=== PATIENT | male | born 1970 | race Caucasian/White ===

== ENCOUNTER 2016-07-05 22:10 | Emergency (ER) | payer OTHER ==
[2016-07-05 22:19] VITALS: RESP 18
[2016-07-05 22:45] LABS: Basophils % (A) 0 %; CH 27.5; CHCM 33.7; Eosinophils # (A) 0.2 k/uL (0-0.7); Eosinophils % (A) 2 %; HCT 42.2 % (39.0-53.0); HDW 2.74; Luc # (Auto) 0.18; Luc % (Auto) 2; Lymphocytes # (A) 2.5 k/uL (1.0-4.8); Lymphocytes % (A) 26 %; MCH 27.2 pg (25.0-35.0); MCHC 33.2 g/dL (31.0-37.0); MCV 81.8 fL (80.0-100.0); Mean Platelet Volume 6.5; Monocytes # (A) 0.6 k/uL (0-1.0); Monocytes % (A) 6 %; Neutrophils # (A) 6.3 k/uL (1.3-7.7); Neutrophils % (A) 65 %; RBC 5.16 m/uL (4.30-5.90); RDW 13.6 % (11.5-15.5); WBC 9.8 k/uL (3.8-10.6); WBC (Perox) 10.09
[2016-07-05 22:58] LABS: ALT 27 U/L (21-72); AST 18 U/L (17-59); Alkaline Phosphatase 75 U/L (38-126); Anion Gap 15 mmol/L; Blood Urea Nitrogen 17 mg/dL (9-20); Calcium 9.2 mg/dL (8.4-10.2); Carbon Dioxide 25 mmol/L (22-30); Chloride 100 mmol/L (98-107); Glucose 138 mg/dL (74-99); Non-African American GFR(MDRD) >60 (>60 ml/min/1.73 sqM); Sodium 140 mmol/L (137-145); Total Bilirubin 0.9 mg/dL (0.2-1.3); Total Protein 7.9 g/dL (6.3-8.2); Uric Acid 7.1 mg/dL (3.5-8.5)
--- NOTE | 2016-07-05 23:31 | US ---
EXAM: US Duplex Right Lower Extremity Veins. CLINICAL HISTORY: Reason: Pain TECHNIQUE: Real-time ultrasound scan of the veins of the right lower extremity with color Doppler flow, spectral waveform analysis and compression. COMPARISON: None available FINDINGS: Deep veins: Unremarkable. No DVT in the common femoral, femoral or popliteal veins. Superficial veins: Unremarkable. No thrombus in the visualized greater saphenous vein. IMPRESSION: No evidence of deep venous thrombosis in the right lower extremity.
--- NOTE | 2016-07-05 23:34 | ED ---
General Adult HPI - General Chief complaint: Extremity Problem,Nontraumatic Stated complaint: Foot Pain/swelling Time Seen by Provider: 07/05/16 22:21 Source: patient, RN notes reviewed, old records reviewed Mode of arrival: wheelchair Limitations: no limitations - History of Present Illness Initial comments: Patient is a 46 year old male with chief complaint of 3 days of right foot swelling and warmth. Patient reports that he has no trauma over the area. Patient states that this has happened before, and his PCP usually puts him on steriods and antiinflammatories. Patient states he has no known history of gout. Patient given IM toradol and solumedrol. Patient states he has a PCP follow up tomorrow. Patient US is negative for DVT and lab work is negative for elevated uric acid or signs of infection. Return parameters discussed. I advised patient to follow up with ortho and PCP in regards for the further prescriptions as he is seeing them tomorrow. - Related Data Home Medications Medication Instructions Recorded Confirmed Hydrocodone/Acetaminophen [Vicodin 1 each PO PRN 12/06/13 12/06/13 Hp 10-300 mg Tablet] Previous Rx's Medication Instructions Recorded Cyclobenzaprine [Flexeril] 10 mg PO TID #20 tablet 12/07/13 Doxycycline Monohydrate [Monodox] 100 mg PO Q12HR #20 cap 12/07/13 Hydrocodone/Acetaminophen [[place] 1 each PO Q4HR PRN #20 tablet 12/07/13 10-325 Tablet] Lisinopril [Prinivil] 5 mg PO DAILY #30 tab 12/07/13 Allergies Allergy/AdvReac Type Severity Reaction Status Date / Time No Known Allergies Allergy Verified 07/05/16 22:19 Review of Systems ROS Statement: Those systems with pertinent positive or pertinent negative responses have been documented in the HPI. ROS Other: All systems not noted in ROS Statement are negative. Past Medical History Past Medical History: Hypertension History of Any Multi-Drug Resistant Organisms: None Reported Additional Past Surgical History / Comment(s): toe amputation (R) foot Past Psychological History: No Psychological Hx Reported Smoking Status: Never smoker Past Alcohol Use History: None Reported Past Drug Use History: None Reported General Exam Limitations: no limitations General appearance: alert, in no apparent distress Head exam: Present: atraumatic, normocephalic, normal inspection Eye exam: Present: normal appearance, PERRL, EOMI. Absent: scleral icterus, conjunctival injection, periorbital swelling ENT exam: Present: normal exam, mucous membranes moist Neck exam: Present: normal inspection. Absent: tenderness, meningismus, lymphadenopathy Respiratory exam: Present: normal lung sounds bilaterally. Absent: respiratory distress, wheezes, rales, rhonchi, stridor Cardiovascular Exam: Present: regular rate, normal rhythm, normal heart sounds. Absent: systolic murmur, diastolic murmur, rubs, gallop, clicks GI/Abdominal exam: Present: soft, normal bowel sounds. Absent: distended, tenderness, guarding, rebound, rigid Extremities exam: Present: normal inspection, full ROM, normal capillary refill. Absent: tenderness, pedal edema, joint swelling, calf tenderness Back exam: Present: normal inspection Neurological exam: Present: alert, oriented X3, CN II-XII intact Psychiatric exam: Present: normal affect, normal mood Skin exam: Present: warm, dry, intact, normal color. Absent: rash Course Vital Signs 07/05/16 07/06/16 22:17 00:01 Temperature 98.0 F 98.5 F Pulse Rate 81 87 Respiratory 18 18 Rate Blood Pressure 140/87 151/91 O2 Sat by Pulse 97 95 Oximetry Medical Decision Making - Lab Data Result diagrams: 07/05/16 22:37 07/05/16 22:37 Lab Results 07/05/16 07/05/16 Range/Units 22:37 22:37 WBC 9.8 (3.8-10.6) k/uL RBC 5.16 (4.30-5.90) m/uL Hgb 14.0 (13.0-17.5) gm/dL Hct 42.2 (39.0-53.0) % MCV 81.8 (80.0-100.0) fL MCH 27.2 (25.0-35.0) pg MCHC 33.2 (31.0-37.0) g/dL RDW 13.6 (11.5-15.5) % Plt Count 252 (150-450) k/uL Neutrophils % 65 % Lymphocytes % 26 % Monocytes % 6 % Eosinophils % 2 % Basophils % 0 % Neutrophils # 6.3 (1.3-7.7) k/uL Lymphocytes # 2.5 (1.0-4.8) k/uL Monocytes # 0.6 (0-1.0) k/uL Eosinophils # 0.2 (0-0.7) k/uL Basophils # 0.0 (0-0.2) k/uL Sodium 140 (137-145) mmol/L Potassium 4.0 (3.5-5.1) mmol/L Chloride 100 (98-107) mmol/L Carbon Dioxide 25 (22-30) mmol/L Anion Gap 15 mmol/L BUN 17 (9-20) mg/dL Creatinine 0.85 (0.66-1.25) mg/dL Est GFR (MDRD) Af Amer >60 (>60 ml/min/1.73 sqM) Est GFR (MDRD) Non-Af >60 (>60 ml/min/1.73 sqM) Glucose 138 H (74-99) mg/dL Uric Acid 7.1 (3.5-8.5) mg/dL Calcium 9.2 (8.4-10.2) mg/dL Total Bilirubin 0.9 (0.2-1.3) mg/dL AST 18 (17-59) U/L ALT 27 (21-72) U/L Alkaline Phosphatase 75 (38-126) U/L Total Protein 7.9 (6.3-8.2) g/dL Albumin 4.4 (3.5-5.0) g/dL Disposition Clinical Impression: Swelling of extremity, right Disposition: HOME SELF-CARE Condition: Good Instructions: Leg Edema (ED) Additional Instructions: Keep foot elevated and wear compression wrap. Follow-up with primary-care primary. Return to emergency Department if any worsening signs or symptoms occur. Referrals: Kristen Prabhakar MD [STAFF PHYSICIAN] - 1-2 days Time of Disposition: 23:39
[2016-07-05] MEDS ORDERED: KETOROLAC 60 MG/2 ML VIAL IM STA (23:46)
[2016-07-05] MEDS ORDERED: methylPREDNISolone SOD SUCCI 125 MG/2 ML VIAL IM ONE (23:46)
[2016-07-06 00:02] VITALS: BP 151/91; PULSE 87; TEMP 98.5
== END 2016-07-06 00:02 | disposition home or self-care (01) ==
LOC: EC 22:10
DX: M79.89 Other specified soft tissue disorders (principal)
CPT/HCPCS: 36415; 80053; 84550; 85025; 93971; 99284; 96372 ×2; J2930; J1885

== ENCOUNTER → 2017-03-14 | Outpatient (CLI) | payer OTHER ==
--- NOTE | 2017-03-14 23:19 | MR ---
EXAMINATION TYPE: MR brain wo con DATE OF EXAM: 03/14/2017 COMPARISON: NONE HISTORY: Sharp pain top and front of head Standard multiplanar, multisequence MRI departmental protocol Multiplanar, multisequence images of the brain were acquired. Diffusion weighted imaging was performe d. FINDINGS: The ventricles and sulci appear fairly normal. There is no mass effect nor midline shift. T here is no sign of intracranial hemorrhage. The donald and white matter structures have fairly normal s ignal pattern. There is no evidence of cerebral edema. Brainstem appears normal. Sella turcica is nor mal. Corpus callosum appears normal. IMPRESSION: Brain appears normal for age.
== END | disposition home or self-care (01) ==
LOC: RADMRIMAIN 19:49
PROVIDERS: ATTEND Family Medicine
DX: Q04.9 Congenital malformation of brain, unspecified (principal)
CPT/HCPCS: 70551

== ENCOUNTER → 2017-07-29 | Outpatient (CLI) | payer OTHER ==
[2017-07-29 11:12] LABS: ALT 39 U/L (21-72); AST 31 U/L (17-59); Cholesterol 214 mg/dL (<200); HDL Cholesterol 47 mg/dL (40-60); LDL Cholesterol,Calculated 143 mg/dL (0-99); Triglycerides 119 mg/dL (<150)
== END | disposition home or self-care (01) ==
LOC: LABWHC1 09:55
PROVIDERS: ATTEND Internal Medicine Cardiovascular Disease
DX: E78.2 Mixed hyperlipidemia (principal)
CPT/HCPCS: 36415; 80061; 84450; 84460

== ENCOUNTER → 2018-01-27 | Outpatient (CLI) | payer OTHER ==
--- NOTE | 2018-01-27 21:40 | MR ---
EXAMINATION TYPE: MR angio head wo con DATE OF EXAM: 01/27/2018 COMPARISON: MR brain 03/14/2017 HISTORY: Chronic pulsating headache TECHNIQUE: Time of flight images focusing on the [place] of [place] were performed without contrast. Th ree-dimensional reconstructions were performed on an alternate workstation. FINDINGS: There is some motion on the exam. Anterior and posterior circulation are intact. There is p ersistent origin of the left posterior cerebral artery, P1 is small. There is no evident dissec tion, aneurysm, or vascular malformation. No evident dissection or embolism. IMPRESSION: Normal [place] of [place] MRA.
== END | disposition home or self-care (01) ==
LOC: RADMRIMAIN 20:45
PROVIDERS: ATTEND Family Medicine
DX: G44.221 Chronic tension-type headache, intractable (principal)
CPT/HCPCS: 70544

== ENCOUNTER → 2019-03-15 | Outpatient (CLI) | payer OTHER | END | disposition home or self-care (01) | LOC: LABWHC1 15:34 | PROVIDERS: ATTEND Psychiatry & Neurology Psychiatry | DX: F90.0 Attention-deficit hyperactivity disorder, predominantly inattentive type (principal) | CPT/HCPCS: 36415; 93005 ==

== ENCOUNTER → 2019-05-27 | Outpatient (CLI) | payer OTHER ==
--- NOTE | 2019-05-27 22:06 | CONS ---
CONSULTATION DATE OF SERVICE: 05/27/2019 This patient is a 49-year-old gentleman evaluated in the sleep center for possible obstructive sleep apnea-hypopnea syndrome. HISTORY OF PRESENT ILLNESS/SLEEP-WAKE EVALUATION: Patient's usual sleep schedule on weekdays is from 10 p.m. to 6 a.m. and on weekends from 4 a.m. until noon or 1 p.m. He does have problem with falling asleep, has a TV set in bedroom, usually sleeps on the side position with loud snoring. He wakes up from sleep up to 8 times, with at least 3 episodes of nocturia. He grinds his teeth and has episodes of heartburn. In the morning the patient wakes up tired, has difficulties paying attention, falling asleep during the day. Welsh Sleepiness Scale is significantly increased at 16. He worries about his sleep. He has problems with memory, concentration, irritability, depression, anxiety and sexual dysfunction. Sometimes he has naps, usually around 4 p.m. He usually does not feel refreshed after naps. He may see vivid dreams during naps. While falling asleep he may see dreams. PAST MEDICAL HISTORY: Past medical history is positive for hypertension, anxiety, gout, acid reflux, nasal fracture. PAST SURGICAL HISTORY: Surgery on the right foot. MEDICATIONS: , vitamin D, , bisoprolol, hydrochlorothiazide, amlodipine, allopurinol, Cerefolin, Prilosec, ibuprofen, acetaminophen. FAMILY HISTORY: Heart problems, hyperlipidemia, epilepsy, stroke, fibromyalgia, arthritis, sinus problems, lung problems, sleep apnea, tuberculosis, pneumonia, headaches, cancer, insomnia, diabetes, nasal polyps, thyroid problems, mental illness, restless legs. SOCIAL HISTORY: Negative for smoking or using alcohol. REVIEW OF SYSTEMS: Multiple awakenings from sleep. Sleepiness during the day. PHYSICAL EXAMINATION: GENERAL: A pleasant gentleman without distress. VITAL SIGNS: BP 135/85, HR 71, RR 15, height 6 feet, weight 355 pounds, body mass index 48.0, temperature 97.8, oxygen saturation at room air 97%. HEENT: PERRLA, EOMI. Evaluation of oropharynx showed tongue protrudes midline. Extremely low position of soft palate. Mallampati IV. Some restriction of nasal breathing. NECK: Supple. No JVD. Thyroid is not palpable. Wide neck; 19-3/4 inches in circumference. LUNGS: Clear to percussion and to auscultation. Good air exchange. No wheezing or rhonchi. HEART: S1, S2 regular. No murmurs, gallops or rubs. ABDOMEN: Obese. EXTREMITIES: No clubbing or cyanosis. SKILLED HELPER: Awake, alert, and oriented X3. Cranial nerves 2 to 7 intact. There is no fasciculation or atrophy. noted. No focal deficits observed. IMPRESSION: 1. Loud snoring, multiple awakenings from sleep up to 8 times per night, extremely low position of soft palate, Mallampati IV, extremely wide neck, 19-3/4 inches in circumference; obstructive sleep apnea-hypopnea syndrome. 2. Obesity; body mass index 48.0. 3. Hypertension. 4. Anxiety. 5. Gout. 6. Acid reflux. 7. Status post nasal fracture, nasal septum deviation. 8. Status post right foot surgery. PLAN: 1. Polysomnography for evaluation of patient's breathing during sleep. 2. CPAP/BiPAP titration if sleep study confirms obstructive sleep apnea-hypopnea syndrome. 3. Preferable position during sleep on the side. 4. No driving if patient feels any sleepiness. 5. I will see patient for follow up visit to explain results of testing and following plan. Thank you very much for referring this patient for consultation. Sincerely, Pavan Bey MD, PhD, FAASM Diplomat of [place] [employer] [place] [employer] [facility] [employer] [facility] [place] MMODL / IJN: [id number] /
== END | disposition home or self-care (01) ==
LOC: SLEEP 15:41
PROVIDERS: ATTEND Internal Medicine
DX: G47.33 Obstructive sleep apnea (adult) (pediatric) (principal); E66.9 Obesity, unspecified; Z68.42 Body mass index [BMI] 45.0-49.9, adult; I10 Essential (primary) hypertension; F41.9 Anxiety disorder, unspecified; M10.9 Gout, unspecified; K21.9 Gastro-esophageal reflux disease without esophagitis; Z98.890 Other specified postprocedural states; Z79.1 Long term (current) use of non-steroidal anti-inflammatories (NSAID); Z79.899 Other long term (current) drug therapy
CPT/HCPCS: 99211

== ENCOUNTER 2019-11-20 13:36 | Observation (INO) | payer OTHER ==
[2019-11-20] MEDS ORDERED: ASPIRIN 81 MG PO STA (14:08)
[2019-11-20] MEDS ORDERED: NITROGLYCERIN OINT 1 INCH/GM PACKET TOPICAL STA (14:08)
--- NOTE | 2019-11-20 14:16 | ED ---
General Adult HPI - General Chief complaint: Chest Pain Stated complaint: chest discomfort Time Seen by Provider: 11/20/19 13:45 Source: patient, RN notes reviewed, old records reviewed Mode of arrival: wheelchair Limitations: no limitations - History of Present Illness Initial comments: This is a 49-year-old male who presents emergency Department complaining of chest pain. Patient states it started at 1 AM this morning and it was quite significantly to about 9 and it continues currently but is much less intense. Patient denies any shortness of breath per patient denies any radiation of the pain. Patient denies any diaphoretic episodes. Patient denies any nausea. Patient states she has a very strong family history of heart disease and he hi mself has high blood pressure. Patient denies any smoking. Patient denies diabetes or high cholesterol. Patient states last night he was not doing anything active he was just about going to bed when this began. Patient denies any lightheadedness or dizziness. Patient denies any palpitations. Patient denies any abdominal pain patient denies nausea vomiting diarrhea per patient denies any swelling to legs no calf tenderness - Related Data Home Medications Medication Instructions Recorded Confirmed Hydrocodone/Acetaminophen [Vicodin 1 each PO PRN 12/06/13 12/06/13 Hp 10-300 mg Tablet] Previous Rx's Medication Instructions Recorded Cyclobenzaprine [Flexeril] 10 mg PO TID #20 tablet 12/07/13 Doxycycline Monohydrate [Monodox] 100 mg PO Q12HR #20 cap 12/07/13 Hydrocodone/Acetaminophen [[place] 1 each PO Q4HR PRN #20 tablet 12/07/13 10-325 Tablet] Lisinopril [Prinivil] 5 mg PO DAILY #30 tab 12/07/13 Allergies Allergy/AdvReac Type Severity Reaction Status Date / Time No Known Allergies Allergy Verified 11/20/19 13:42 Review of Systems ROS Statement: Those systems with pertinent positive or pertinent negative responses have been documented in the HPI. ROS Other: All systems not noted in ROS Statement are negative. Past Medical History Past Medical History: Hypertension Additional Past Medical History / Comment(s): Autism History of Any Multi-Drug Resistant Organisms: None Reported Additional Past Surgical History / Comment(s): toe amputation (R) foot Past Psychological History: No Psychological Hx Reported Smoking Status: Never smoker Past Alcohol Use History: None Reported Past Drug Use History: None Reported General Exam - General Exam Comments Initial Comments: GENERAL: Patient is well-developed and well-nourished. Patient is nontoxic and well- hydrated and is in mild distress. ENT: Neck is soft and supple. No significant lymphadenopathy is noted. Oropharynx is clear. Moist mucous membranes. Neck has full range of motion without eliciting any pain. EYES: The sclera were anicteric and conjunctiva were pink and moist. Extraocular movements were intact and pupils were equal round and reactive to light. Eyelids were unremarkable. PULMONARY: Unlabored respirations. Good breath sounds bilaterally. No audible rales rhonchi or wheezing was noted. CARDIOVASCULAR: There is a regular rate and rhythm without any murmurs gallops or rubs. Chest pain is not reproducible ABDOMEN: Soft and nontender with normal bowel sounds. SKIN: Skin is clear with no lesions or rashes and otherwise unremarkable. NEUROLOGIC: Patient is alert and oriented x3. Cranial nerves II through XII are grossly intact. Motor and sensory are also intact. Normal speech, volume and content. Symmetrical smile. MUSCULOSKELETAL: Normal extremities with adequate strength and full range of motion. No lower extremity swelling or edema. No calf tenderness. LYMPHATICS: No significant lymphadenopathy is noted PSYCHIATRIC: Normal psychiatric evaluation. Limitations: no limitations Course Vital Signs 11/20/19 11/20/19 13:43 14:30 Temperature 97.9 F Pulse Rate 57 L 52 L Respiratory 18 18 Rate Blood Pressure 150/84 142/97 O2 Sat by Pulse 99 98 Oximetry Medical Decision Making - Medical Decision Making EKG shows sinus bradycardia 52 bpm MT interval 180 QRS is 98 QT interval is 454 QTC is 422. Patient's EKG shows no ST segment elevation or depression. Chest x-ray shows no acute abnormality. Patient's chest pain improved after the nitroglycerin and aspirin. Patient started on heparin in the emergency department for the unstable angina. I spoke with Dr. Mullins he agreed to admit the patient admitted the patient wrote admitting orders I consult cardiology. I continue aspirin heparin and Nitropaste on the floor. - Lab Data Result diagrams: 11/20/19 14:11 11/20/19 14:11 Lab Results 11/20/19 11/20/19 11/20/19 Range/Units 14:11 14:11 14:11 WBC 10.4 (3.8-10.6) k/uL RBC 5.21 (4.30-5.90) m/uL Hgb 14.9 (13.0-17.5) gm/dL Hct 44.5 (39.0-53.0) % MCV 85.3 (80.0-100.0) fL MCH 28.6 (25.0-35.0) pg MCHC 33.6 (31.0-37.0) g/dL RDW 13.4 (11.5-15.5) % Plt Count 234 (150-450) k/uL Neutrophils % 61 % Lymphocytes % 30 % Monocytes % 5 % Eosinophils % 3 % Basophils % 0 % Neutrophils # 6.3 (1.3-7.7) k/uL Lymphocytes # 3.1 (1.0-4.8) k/uL Monocytes # 0.5 (0-1.0) k/uL Eosinophils # 0.3 (0-0.7) k/uL Basophils # 0.1 (0-0.2) k/uL PT 9.6 (9.0-12.0) sec INR 0.9 (<1.2) APTT 25.7 (22.0-30.0) sec Sodium 137 (137-145) mmol/L Potassium 4.1 (3.5-5.1) mmol/L Chloride 102 (98-107) mmol/L Carbon Dioxide 26 (22-30) mmol/L Anion Gap 9 mmol/L BUN 17 (9-20) mg/dL Creatinine 0.81 (0.66-1.25) mg/dL Est GFR (CKD-EPI)AfAm >90 (>60 ml/min/1.73 sqM) Est GFR (CKD-EPI)NonAf >90 (>60 ml/min/1.73 sqM) Glucose 101 H (74-99) mg/dL Calcium 9.3 (8.4-10.2) mg/dL Magnesium 2.1 (1.6-2.3) mg/dL Total Bilirubin 0.8 (0.2-1.3) mg/dL AST 30 (17-59) U/L ALT 27 (4-49) U/L Alkaline Phosphatase 80 (38-126) U/L Total Protein 7.4 (6.3-8.2) g/dL Albumin 4.4 (3.5-5.0) g/dL Critical Care Time Critical Care Time: Yes Total Critical Care Time: 35 Disposition Clinical Impression: Unstable angina pectoris Disposition: ADMITTED IP TO THIS HOSP Referrals: Mariana Arshad MD [Primary Care Provider] - 1-2 days Time of Disposition: 14:59
[2019-11-20 14:41] LABS: Basophils # (A) 0.1 k/uL (0-0.2); Basophils % (A) 0 %; Eosinophils # (A) 0.3 k/uL (0-0.7); Eosinophils % (A) 3 %; HCT 44.5 % (39.0-53.0); HGB 14.9 gm/dL (13.0-17.5); Lymphocytes # (A) 3.1 k/uL (1.0-4.8); Lymphocytes % (A) 30 %; MCH 28.6 pg (25.0-35.0); MCHC 33.6 g/dL (31.0-37.0); MCV 85.3 fL (80.0-100.0); Mean Platelet Volume 6.9; Monocytes # (A) 0.5 k/uL (0-1.0); Monocytes % (A) 5 %; Neutrophils # (A) 6.3 k/uL (1.3-7.7); Neutrophils % (A) 61 %; Platelet Count 234 k/uL (150-450); RBC 5.21 m/uL (4.30-5.90); RDW 13.4 % (11.5-15.5); WBC 10.4 k/uL (3.8-10.6)
[2019-11-20 14:49] LABS: INR 0.9 (<1.2); Partial Thromboplastin Time 25.7 sec (22.0-30.0); Prothrombin Time 9.6 sec (9.0-12.0)
[2019-11-20 14:50] LABS: ALT 27 U/L (4-49); AST 30 U/L (17-59); African American GFR (CKD) >90 (>60 ml/min/1.73 sqM); Albumin 4.4 g/dL (3.5-5.0); Alkaline Phosphatase 80 U/L (38-126); Anion Gap 9 mmol/L; Blood Urea Nitrogen 17 mg/dL (9-20); Calcium 9.3 mg/dL (8.4-10.2); Carbon Dioxide 26 mmol/L (22-30); Chloride 102 mmol/L (98-107); Glucose 101 mg/dL (74-99); Magnesium 2.1 mg/dL (1.6-2.3); Non-African American GFR(CKD) >90 (>60 ml/min/1.73 sqM); Potassium 4.1 mmol/L (3.5-5.1); Sodium 137 mmol/L (137-145); Total Bilirubin 0.8 mg/dL (0.2-1.3); Total Protein 7.4 g/dL (6.3-8.2)
--- NOTE | 2019-11-20 14:50 | XR ---
EXAMINATION TYPE: XR chest 2V DATE OF EXAM: 11/20/2019 COMPARISON: 12/07/2013 HISTORY: Chest pain TECHNIQUE: FINDINGS: Heart and mediastinum are normal. Lungs are clear. Diaphragm is normal. Bony thorax appears normal. IMPRESSION: Normal chest. There is clearing of atelectasis left lower lobe compared to old exam.
[2019-11-20] MEDS ORDERED: NITROGLYCERIN SL TABS 0.4 MG TAB SUBLINGUAL PRN (15:00)
[2019-11-20] MEDS ORDERED: ALPRAZolam 0.25 MG TAB PO PRN (17:18)
[2019-11-20] MEDS ORDERED: HYDROmorphone 0.5 MG/0.5 ML SYRINGE IVP PRN (17:18)
[2019-11-20] MEDS ORDERED: TEMAZEPAM 15 MG CAP PO PRN (17:18)
[2019-11-20] MEDS ORDERED: HYDROcodone/APAP 5-325MG 1 EACH TAB PO PRN (17:18)
[2019-11-20] MEDS: NITROGLYCERIN OINT 1 INCH/GM PACKET TOPICAL SCH ×2 (17:37→23:55)
[2019-11-20] MEDS ORDERED: ACETAMINOPHEN TAB 325 MG TAB PO PRN (17:38)
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
[2019-11-20] MEDS: BISOPROLOL-HCTZ 10-6.25 MG 1 EACH TAB PO SCH (20:58)
[2019-11-20] MEDS: ZIPRASIDONE 40 MG CAP PO SCH (20:58)
[2019-11-20] MEDS: MAGNESIUM OXIDE 400 MG TAB PO SCH (20:58)
[2019-11-20] MEDS: amLODIPine 5 MG TAB PO SCH (20:58)
[2019-11-21 03:38] LABS: Cholesterol 203 mg/dL (<200); HDL Cholesterol 40 mg/dL (40-60); LDL Cholesterol,Calculated 133 mg/dL (0-99); Triglycerides 150 mg/dL (<150)
[2019-11-21] MEDS: NITROGLYCERIN OINT 1 INCH/GM PACKET TOPICAL SCH ×4 (04:58→23:50)
[2019-11-21] MEDS: PANTOPRAZOLE 40 MG TABLET PO SCH (06:44)
[2019-11-21] MEDS ORDERED: ASPIRIN 325 MG TAB PO SCH (09:00)
[2019-11-21] MEDS ORDERED: [UNRECOGNIZED DRUG - OTHER] PO SCH (09:00)
[2019-11-21] MEDS: allopurinoL 300 MG TAB PO SCH (09:16)
[2019-11-21] MEDS: BISOPROLOL-HCTZ 10-6.25 MG 1 EACH TAB PO SCH ×2 (09:16→22:54)
--- NOTE | 2019-11-21 10:36 | CONS ---
CONSULTATION CHIEF COMPLAINT: Chest pain. This is a 49-year-old gentleman with history of hypertension who presented to the hospital complaining of chest pain. He describes it as a precordial chest discomfort that started around 1 o'clock last night and came to the hospital few hours later. At the time of my evaluation, he is pain free, hemodynamically stable and in no apparent distress. His chest discomfort was mild intensity, pressure-like sensation without any diaphoresis, dizziness or shortness of breath. The pain did not radiate to his neck, arm or back. At the time of my evaluation, patient is pain-free. EKG did not reveal ischemic changes. Three sets of cardiac enzymes are negative. PAST MEDICAL HISTORY: Significant for hypertension. MEDICATIONS: Include Norvasc, Geodon, magnesium, Ziac, Zyloprim. ALLERGIES: There are no known drug allergies. FAMILY HISTORY: Negative for premature coronary artery disease. SOCIAL HISTORY: Negative for current smoking, EtOH abuse, or drug abuse. REVIEW OF SYSTEMS: HEENT is unremarkable. Cardiac as described above. Respiratory as described above. GI negative. Genitourinary negative. ALLERGY/IMMUNOLOGY: Negative. Skin negative. Musculoskeletal negative. Endocrine negative. DERM: Negative. CONSTITUTIONAL: Negative. ONCOLOGICAL: Negative. CLOUD CONSULTANT negative. EXAM: He appears comfortable at rest. Vital signs are stable. There is no jugular venous distention. Carotid upstroke is normal. There is no bruit. Chest exam reveals good air entry bilaterally. Heart exam reveals first and second heart sounds. No gallop. No murmur. Abdomen is soft, nontender. Exam of extremities did not reveal any edema. Peripheral pulses are felt. ASSESSMENT: 1. Precordial chest pain. 2. History of hypertension. PLAN: I talked to patient about his symptomatology and treatment options. I talked to him about undergoing cardiac catheterization. Understanding risks, benefits, he wishes to have a stress test done. If this is abnormal, he will go through cardiac cath. I am going to schedule him for an echocardiogram and stress test in the morning and decide on further course of action based on the stress test findings. MMJAIROL / TORIBION: [id number] /
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
[2019-11-21] MEDS: MAGNESIUM OXIDE 400 MG TAB PO SCH (21:48)
[2019-11-21] MEDS: amLODIPine 5 MG TAB PO SCH (21:48)
[2019-11-21] MEDS: ZIPRASIDONE 40 MG CAP PO SCH (21:48)
[2019-11-22] MEDS: NITROGLYCERIN OINT 1 INCH/GM PACKET TOPICAL SCH (05:52)
[2019-11-22] MEDS ORDERED: AMINOPHYLLINE 500 MG/20 ML VIAL IV PRN (07:37)
[2019-11-22] MEDS ORDERED: REGADENOSON 0.4 MG/5 ML SYRINGE IV ONE (07:37)
[2019-11-22] MEDS ORDERED: CAFFEINE CITRATE 60 MG/3 ML VIAL IV PRN (07:37)
[2019-11-22] MEDS: BISOPROLOL-HCTZ 10-6.25 MG 1 EACH TAB PO SCH (08:37)
[2019-11-22] MEDS: PANTOPRAZOLE 40 MG TABLET PO SCH (08:37)
[2019-11-22] MEDS: allopurinoL 300 MG TAB PO SCH (08:37)
[2019-11-22 08:53] VITALS: RESP 16
[2019-11-22] MEDS ORDERED: ASPIRIN 81 MG PO SCH (09:00)
[2019-11-22] MEDS ORDERED: ATORVASTATIN 10 MG TAB PO SCH (09:00)
[2019-11-22] MEDS ORDERED: ATORVASTATIN 20 MG TAB PO SCH (09:00)
--- NOTE | 2019-11-22 10:02 | P.PN ---
Subjective This is a pleasant 49-year-old male past medical history significant for hypertension and bipolar disorder. He is seen and examined resting comfortably in no acute distress. He denies any further symptoms of chest discomfort. He has no shortness of breath, dizziness or palpitations. Blood pressure 123/84 heart rate 58 afebrile maintaining oxygen saturation on room air. Laboratory data reviewed, cardiac enzymes negative 3, LDL 133 and HDL 40. Currently maintained on amlodipine 5 mg daily, aspirin 325 mg daily, atorvastatin 10 mg daily and Ziac 10/6.25 mg twice a day. GENERAL: Well-appearing, well-nourished and in no acute distress. Obese. NECK: Supple without JVD or thyromegaly. LUNGS: Breath sounds clear to auscultation bilaterally. Respiration equal and unlabored. No wheezes, rales or rhonchi. HEART: Regular rate and rhythm without murmurs, rubs or gallops. S1 and S2 heard. EXTREMITIES: Normal range of motion, no edema. No clubbing or cyanosis. Peripheral pulses intact. ASSESSMENT Chest pain, an acute coronary event has been ruled out. Hypertension Dyslipidemia Morbid obesity, BMI 45 Bipolar disorder PLAN Decrease aspirin to 81 mg daily and atorvastatin to 20 mg daily. Proceed with stress test as previously ordered. If evidence of reversibility is noted we will consider proceeding with cardiac catheterization. If stress test is normal he may be discharged from a cardiac perspective. Nurse Practitioner note has been reviewed, I agree with a documented findings and plan of care. Patient was seen and examined. Objective - Vital Signs Vital signs: Vital Signs Temp 97.7 F 11/22/19 08:47 Pulse 58 L 11/22/19 08:47 Resp 16 11/22/19 08:47 BP 123/84 11/22/19 08:47 Pulse Ox 98 11/22/19 08:47 Intake & Output 11/21/19 11/22/19 11/22/19 18:59 06:59 18:59 Intake Total 450 Balance 450 Intake: Oral 450 Other: Voiding Method Toilet Toilet # Voids 2 1 1 - Labs CBC & Chem 7: 11/20/19 14:11 11/20/19 14:11
--- NOTE | 2019-11-22 11:46 | NM ---
EXAMINATION TYPE: NM stress lexiscan cardiolite DATE OF EXAM: 11/22/2019 COMPARISON: NONE HISTORY: Chest pain. TECHNIQUE: After the intravenous administration of 10.5 mCi Tc 99m Sestamibi - Cardiolite resting SP ECT images acquired 60 minutes post injection. The patient received 0.4mg Lexiscan, 26.3 mCi Tc 99m Sestamibi - Stress images obtained [address] injection FINDINGS: Review of stress and rest SPECT images demonstrates no distinct perfusion abnormality. Gated analysi s shows normal wall motion with an estimated left ventricular ejection fraction of 62 %. IMPRESSION: No scintigraphic evidence for reversible ischemia.
[2019-11-22 14:46] VITALS: BP 124/81; PULSE 62; TEMP 98
--- NOTE | 2019-11-22 17:21 | P.STRESS ---
- Stress Test Note Stress Test Results/Findings: Exam Performed: NM stress lexiscan cardiolite Exam Date: 11/22/19 Reason for Exam: Chest Pain Height: 6 ft Weight: 153.31 kg Protocol: Lexiscan Stage: NA Duration of Exercise: NA Resting Heart Rate: 54 Resting Blood Pressure: 126/92 Maximum Achieved Heart Rate: 84 Maximum Achieved Blood Pressure: 142/81 85% PMHR: 147 100% PMHR: 173 METS: NA Technologist Comment: Stress Test Results/Findings: Baseline heart rate 54 beats a minute, Baseline blood pressure 126/92 mmHg Baseline 20 C showed normal sinus rhythm with a [address] elevation diffusely Patient received Lexiscan infusion per protocol no change in EKG No change in heart rate blood pressure Nuclear portion will be reported separately
--- NOTE | 2019-11-23 11:36 | ECHOF ---
Referral Reason:chest pain MEASUREMENTS -------- HEIGHT: 182.9 cm WEIGHT: 153.3 kg BP: 111/76 IVSd: 1.5 cm (0.6 - 1.1) LVIDd: 4.9 cm (3.9 - 5.3) LVPWd: 1.4 cm (0.6 - 1.1) IVSs: 2.0 cm LVIDs: 3.4 cm LVPWs: 1.9 cm LA Diam: 3.8 cm (2.7 - 3.8) RVIDd: 3.4 cm (< 3.3) Ao Diam: 3.6 cm (2.0 - 3.7) AV Cusp: 2.8 cm (1.5 - 2.6) EPSS: 1.3 cm MV E David: 0.87 m/s MV DecT: 220 ms MV A David: 0.96 m/s MV E/A Ratio: 0.90 MV EF SLOPE: 56.96 mm/s (70 - 150) MV EXCURSION: 20.30 mm (> 18.000) FINDINGS -------- Sinus rhythm. This was a technically difficult study with suboptimal views. The left ventricular size is normal. There is moderate concentric left ventricular hypertrophy. O verall left ventricular systolic function is normal with, an EF between 60 - 65 %. The right ventricle is mildly enlarged. The left atrial size is normal. The right atrium was not well visualized. 3 ml of Lumason was utilized for enhancement of images. The aortic valve is trileaflet and appears structurally normal. The mitral valve is normal. The tricuspid valve was not well visualized. Trace/mild (physiologic) pulmonic regurgitation. The aortic root size is normal. IVC Not well visulized. There is no pericardial effusion. CONCLUSIONS -------- 1. The left ventricular size is normal. 2. There is moderate concentric left ventricular hypertrophy. 3. Overall left ventricular systolic function is normal with, an EF between 60 - 65 %. 4. The right ventricle is mildly enlarged. 5. 3 ml of Lumason was utilized for enhancement of images. 6. Trace/mild (physiologic) pulmonic regurgitation. 7. There is no pericardial effusion. FREELANCE ART DIRECTOR: Angelique De Anda RDCS
[2019-11-26] MEDS ORDERED: ERGOCALCIFEROL 50,000 UNIT CAP PO SCH (09:00)
== END 2019-11-22 15:34 | disposition home or self-care (01) ==
LOC: EC 13:36 → 3NCARDOBS 15:00
PROVIDERS: ADMIT Family Medicine; ATTEND Family Medicine
DX: R07.2 Precordial pain (principal); R00.1 Bradycardia, unspecified; R94.31 Abnormal electrocardiogram [ECG] [EKG]; I45.19 Other right bundle-branch block; I11.9 Hypertensive heart disease without heart failure; F84.0 Autistic disorder; M10.9 Gout, unspecified; F31.9 Bipolar disorder, unspecified; E78.5 Hyperlipidemia, unspecified; E66.01 Morbid (severe) obesity due to excess calories; Z68.41 Body mass index [BMI] 40.0-44.9, adult; Z87.828 Personal history of other (healed) physical injury and trauma; Z03.818 Encounter for observation for suspected exposure to other biological agents ruled out; Z79.899 Other long term (current) drug therapy; Z89.421 Acquired absence of other right toe(s); Z82.49 Family history of ischemic heart disease and other diseases of the circulatory system; Z82.3 Family history of stroke
CPT/HCPCS: 93005 ×2; 99291; 36415; 93017; 80061; 80053; 83735; 84484; 85025; 85610; 85730; 71046; 78452; G0378 ×3; C8929; U0003; A9500; J2785; Q9950; 93306

== ENCOUNTER 2022-09-17 08:14 | Day surgery (SDC) | payer OTHER ==
[2022-09-12 10:54] VITALS: BMI 47.5
[~2022-09-17 08:14] MED LIST: LACTATED RINGERS 1,000 ML IV SCH; LIDOCAINE 1% (10MG/ML) FOR IV START INTRADERMA PRN
[2022-09-17 09:16] VITALS: TEMP 97.7
[2022-09-17] MEDS ORDERED: PROPOFOL 10 MG/ML 20 ML VIAL IV ONE (09:41)
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
--- NOTE | 2022-09-17 10:08 | P.PCN ---
Date of Procedure: 09/17/22 Procedure(s) Performed: PREOPERATIVE DIAGNOSIS: Colon cancer screening POSTOPERATIVE DIAGNOSIS: Sigmoid colon polyp, diverticulosis PROCEDURE: Colonoscopy with snare polypectomy ANESTHESIA: MAC SURGEON: David Dutta M.D. SPECIMENS: Polyp ENDOSCOPIC PROCEDURE: The patient was placed on the endoscopy table in the left decubitus position. The Olympus colonoscope was inserted into the anus and passed under direct visualization to the base of the cecum. The appendiceal orifice was visualized. From that point the scope was slowly withdrawn inspecting all surfaces carefully. There were no neoplastic inflammatory or polypoid lesions throughout the cecum, ascending, transverse, and descending colon. In the sigmoid colon a small polyp was seen and removed using the cold snare technique. The remainder of the sigmoid and rectum was normal. There was mild scattered diverticulosis. Digital rectal examination was normal. The patient was taken to the recovery room in stable condition per anesthesia guidelines. RECOMMENDATIONS: Await biopsy results. Repeat colonoscopy pending pathology results.
[2022-09-17 10:11] VITALS: RESP 16
[2022-09-17 10:23] VITALS: BP 109/72; PULSE 66
== END 2022-09-17 10:36 | disposition home or self-care (01) ==
LOC: ORWHC2ENDO 08:14
PROVIDERS: ATTEND Surgery
DX: Z12.11 Encounter for screening for malignant neoplasm of colon (principal); K57.30 Diverticulosis of large intestine without perforation or abscess without bleeding; D12.5 Benign neoplasm of sigmoid colon; K21.9 Gastro-esophageal reflux disease without esophagitis; I10 Essential (primary) hypertension; M10.9 Gout, unspecified; F84.0 Autistic disorder; Z83.3 Family history of diabetes mellitus; Z82.49 Family history of ischemic heart disease and other diseases of the circulatory system; Z82.3 Family history of stroke; Z79.899 Other long term (current) drug therapy
CPT/HCPCS: 88305; 45385; J2704